=== PATIENT | female | born 1950 | race Hispanic/Latino ===

== ENCOUNTER 2021-01-07 14:13 | Outpatient (CLI) | payer MEDICARE, OTHER | END 2021-01-07 14:14 | disposition home or self-care (01) | LOC: BICMAMMO 14:13 | PROVIDERS: ATTEND Physician Assistant | DX: Z12.31 Encounter for screening mammogram for malignant neoplasm of breast (principal); Z13.820 Encounter for screening for osteoporosis; Z78.0 Asymptomatic menopausal state; M85.89 Other specified disorders of bone density and structure, multiple sites | CPT/HCPCS: 77063; 77067; 77080 ==

== ENCOUNTER 2022-02-14 13:37 | Outpatient (CLI) | payer MEDICARE, OTHER | END 2022-02-14 13:38 | disposition home or self-care (01) | LOC: BICMAMMO 13:37 | PROVIDERS: ATTEND Physician Assistant | DX: Z12.31 Encounter for screening mammogram for malignant neoplasm of breast (principal) | CPT/HCPCS: 77063; 77067 ==

== ENCOUNTER 2023-03-13 09:20 | Emergency (ER) | payer MEDICARE, OTHER ==
[2023-03-13] MEDS ORDERED: Boostrix 0.5 ML (Tdap) VIAL (>/=7 yrs of age) ONE (11:06)
[2023-03-13] MEDS ORDERED: Ondansetron PF 4 MG/2 ML Vial ONE ×2 (11:06→12:10)
[2023-03-13] MEDS ORDERED: Ketorolac Tromethamine 30 MG/ML VIAL ONE (11:06)
[2023-03-13] MEDS ORDERED: fentaNYL 50 mcg/mL 1 mL Vial ONE (11:06)
== END 2023-03-13 12:20 | disposition home or self-care (01) ==
LOC: ERS 09:20
DX: S43.015A Anterior dislocation of left humerus, initial encounter (principal); S00.432A Contusion of left ear, initial encounter; S80.212A Abrasion, left knee, initial encounter; I10 Essential (primary) hypertension; E78.5 Hyperlipidemia, unspecified; M81.0 Age-related osteoporosis without current pathological fracture; Z79.899 Other long term (current) drug therapy; W22.8XXA Striking against or struck by other objects, initial encounter
CPT/HCPCS: 23650; 73030 ×2; 96374; 96375; 99283; J3010; 90715; J1885; J2405